=== PATIENT | female | born 1970 | race Caucasian/White ===

== ENCOUNTER 2018-10-01 06:40 | Day surgery (SDC) | payer MEDICAID ==
[~2018-10-01] VITALS: Ht 149.9 cm; Wt 49.9 kg
[2018-10-01] MEDS ORDERED: fentaNYL 0.05 MG/ML VIAL ONE (10:17)
[2018-10-01] MEDS ORDERED: LIDOCAINE 2% 100 MG/5 ML UJET TP ONE (10:17)
== END 2018-10-01 11:24 | disposition home or self-care (01) ==
LOC: MOR 06:40 → MTU 06:41 → MOR 11:24
PROVIDERS: ATTEND Internal Medicine Gastroenterology
DX: K52.9 Noninfective gastroenteritis and colitis, unspecified (principal); K62.5 Hemorrhage of anus and rectum; Z90.710 Acquired absence of both cervix and uterus
CPT/HCPCS: 88305; J3010